=== PATIENT | female | born 2000 | race Two or more races ===

== ENCOUNTER 2021-11-08 10:15 | Outpatient (CLI) | payer OTHER, SELFPAY ==
[2021-11-16 15:21] LABS: HPV APTIMA, High Risk Negative (Negative)
[2021-11-16 15:26] LABS: HPV Reflexed? YES, CHARGE PATIENT
== END 2021-11-08 23:59 | disposition home or self-care (01) ==
LOC: LABSPEC 10:26
PROVIDERS: Visit Provider Student in an Organized Health Care Education/Training Program
DX: Z12.4 Encounter for screening for malignant neoplasm of cervix (principal)
CPT/HCPCS: 87624; 88175; G0145